=== PATIENT | male | born 2000 | race Hispanic/Latino ===

== ENCOUNTER 2021-12-13 08:37 | Emergency (ER) | payer SELFPAY | END 2021-12-13 10:45 | disposition home or self-care (01) | LOC: MADERS 08:37 | DX: S00.12XA Contusion of left eyelid and periocular area, initial encounter (principal); S16.1XXA Strain of muscle, fascia and tendon at neck level, initial encounter; S93.602A Unspecified sprain of left foot, initial encounter; S00.532A Contusion of oral cavity, initial encounter; J32.0 Chronic maxillary sinusitis; K02.9 Dental caries, unspecified; J34.89 Other specified disorders of nose and nasal sinuses; F17.210 Nicotine dependence, cigarettes, uncomplicated; Y08.09XA Assault by strike by other specified type of sport equipment, initial encounter | CPT/HCPCS: 70450; 70486; 72125 ==

== ENCOUNTER 2025-04-12 11:39 | Emergency (ER) | payer SELFPAY | END 2025-04-12 12:41 | disposition home or self-care (01) | LOC: MADERS 11:39 | DX: K04.7 Periapical abscess without sinus (principal); K02.9 Dental caries, unspecified; Z59.71 Insufficient health insurance coverage | CPT/HCPCS: 99282 ==